=== PATIENT | female | born 1960 | race Caucasian/White ===

== ENCOUNTER → 2016-11-10 | Outpatient (REF) | payer BC ==
[2016-11-10 12:06] LABS: ALBUMIN 3.9 GM/DL (3.2-5.2); ALKALINE PHOSPHATASE 41 U/L (45-117); ALT/SGPT 27 U/L (12-78); ANION GAP 7 MEQ/L (8-16); AST/SGOT 18 U/L (15-37); BILIRUBIN,TOTAL 0.5 MG/DL (0.2-1.0); BLOOD UREA NITROGEN 25 MG/DL (7-18); CALCIUM LEVEL 8.9 MG/DL (8.5-10.1); CARBON DIOXIDE LEVEL 28 MEQ/L (21-32); CHLORIDE LEVEL 102 MEQ/L (98-107); CREATININE FOR GFR 0.68 MG/DL (0.55-1.02); GLOMERULAR FILTRATION RATE > 60.0 (>51); GLUCOSE, FASTING 83 MG/DL (70-105); POTASSIUM SERUM 3.9 MEQ/L (3.5-5.1); SODIUM LEVEL 137 MEQ/L (136-145); TOTAL PROTEIN 6.5 GM/DL (6.4-8.2)
[2016-11-10 12:13] LABS: VITAMIN B12 LEVEL 485 PG/ML
[2016-11-10 12:14] LABS: FOLATE 9.1 NG/ML
== END ==
LOC: M SFHCPLAZ 09:13
PROVIDERS: ATTEND Internal Medicine
DX: E87.6 Hypokalemia (principal); E78.00 Pure hypercholesterolemia, unspecified; E55.9 Vitamin D deficiency, unspecified; R53.83 Other fatigue

== ENCOUNTER → 2016-11-14 | Outpatient (CLI) | payer BC | LOC: M LAB 06:08 | PROVIDERS: ATTEND Internal Medicine | DX: E87.6 Hypokalemia (principal); E55.9 Vitamin D deficiency, unspecified; E78.00 Pure hypercholesterolemia, unspecified ==

== ENCOUNTER 2016-12-15 19:28 | Emergency (ER) | payer BC ==
[~2016-12-15] VITALS: Ht 167.6 cm; Wt 59.0 kg
--- NOTE | 2016-12-15 20:11 | ED PDOC ---
Post-Departure Follow-Up Patient presents to the ED with the solitary complaint of abdominal bloating for "a few months". Today, she noted that there was a "lump" in left lower abd. She denies any other complaints. See her T-sheet for the remainder of her H&P and ROS. Discussed options with patient. Offered an US to evaluate her ovaries as symptoms of ovarian cancer are usually very vague and generally include abdominal bloating. Also offered a CT abd/pelvis to evaluate but patient states she has had a clean colonoscopy within the past 6 months. She opted to have an US. No other testing was ordered at this time as she otherwise feels healthy. ADA NICHOLSON. [facility] Dec 15, 2016 20:11
--- NOTE | 2016-12-15 22:10 | REPUSA ---
Clinical history: abdominal bloating. Findings: Real-time transabdominal and transvaginal ultrasound images of the pelvis were obtained. An anteverted uterus is noted, measuring 7.0 x 3.7 x 4.7 cm. The uterus demonstrates normal echotextur e and echogenicity. The endometrial stripe measures 2 mm and is within normal limits. The right ovar y measures 3.3 x 1.1 x 1.5 cm. The left ovary measures 1.3 x 0.9 x 1.1 cm. No adnexal masses are see n. Color Doppler flow is seen within both ovaries. There is no evidence of free fluid. The urinary bl adder measures 4.4 x 2.1 x 5.7 cm, and is grossly unremarkable. Impression: Unremarkable ultrasound examination of the pelvis.
[2016-12-15 22:40] VITALS: BP 131/62
== END 2016-12-15 22:41 | disposition home or self-care (01) ==
LOC: M ED 19:55
DX: R14.0 Abdominal distension (gaseous) (principal); Z87.891 Personal history of nicotine dependence; Z88.5 Allergy status to narcotic agent; Z88.8 Allergy status to other drugs, medicaments and biological substances; Z88.3 Allergy status to other anti-infective agents

== ENCOUNTER → 2017-06-19 | Outpatient (CLI) | payer BC ==
[2017-06-19 11:11] LABS: MEAN CORPUSCULAR HEMOGLOBIN 29.9 pg (27.0-33.0); MEAN CORPUSCULAR HGB CONC 33.4 g/dl (32.0-36.5); MEAN CORPUSCULAR VOLUME 89.4 fl (80.0-96.0); PLATELET COUNT, AUTOMATED 227 10^3/uL (150-450); RED CELL DISTRIBUTION WIDTH 11.9 % (11.5-14.5); WHITE BLOOD COUNT 4.1 10^3/uL (4.0-10.0)
[2017-06-19 11:45] LABS: ALBUMIN 3.8 GM/DL (3.2-5.2); ALBUMIN/GLOBULIN RATIO 1.15 (1.00-1.93); BILIRUBIN,DIRECT 0.1 MG/DL (0.0-0.2); BILIRUBIN,TOTAL 0.5 MG/DL (0.2-1.0); TOTAL PROTEIN 7.1 GM/DL (6.4-8.2)
== END ==
LOC: M LAB 10:28
PROVIDERS: ATTEND Physician Assistant Medical
DX: D18.09 Hemangioma of other sites (principal)

== ENCOUNTER → 2018-11-18 | Outpatient (REF) | payer BC ==
[2018-11-18 10:06] LABS: HEMATOCRIT 40.4 % (36.0-47.0); HEMOGLOBIN 13.3 g/dl (12.0-15.5); MEAN CORPUSCULAR HGB CONC 32.9 g/dl (32.0-36.5); PLATELET COUNT, AUTOMATED 170 10^3/uL (150-450); RED BLOOD COUNT 4.44 10^6/uL (4.00-5.40); WHITE BLOOD COUNT 4.3 10^3/uL (4.0-10.0)
[2018-11-18 10:11] LABS: ALBUMIN 3.9 GM/DL (3.2-5.2); ALT/SGPT 24 U/L (12-78); BILIRUBIN,TOTAL 0.4 MG/DL (0.2-1.0); BLOOD UREA NITROGEN 13 MG/DL (7-18); CALCIUM LEVEL 8.8 MG/DL (8.5-10.1); CARBON DIOXIDE LEVEL 32 MEQ/L (21-32); CHLORIDE LEVEL 110 MEQ/L (98-107); CHOLESTEROL LEVEL 245 MG/DL (<200); CHOLESTEROL RISK RATIO 3.888 (<5); GLOMERULAR FILTRATION RATE > 60.0 (>51); GLUCOSE, FASTING 85 MG/DL (70-100); HDL CHOLESTEROL 63 MG/DL (>40); LDL CHOLESTEROL 164 MG/DL (<100); NON-HDL-C 182 MG/DL; POTASSIUM SERUM 4.3 MEQ/L (3.5-5.1); SODIUM LEVEL 144 MEQ/L (136-145); TOTAL PROTEIN 6.5 GM/DL (6.4-8.2); TRIGLYCERIDES LEVEL 90 MG/DL (<150)
== END ==
LOC: M SFHCPLAZ 07:51
PROVIDERS: ATTEND Internal Medicine
DX: Z00.00 Encounter for general adult medical examination without abnormal findings (principal); Z86.2 Personal history of diseases of the blood and blood-forming organs and certain disorders involving the immune mechanism; E87.6 Hypokalemia; E78.00 Pure hypercholesterolemia, unspecified

== ENCOUNTER → 2019-02-11 | Outpatient (CLI) | payer BC ==
--- NOTE | 2019-02-13 14:02 | DEXA ---
AP SPINE L1 - L4 1.157 -0.3 0.8 LT FEMUR TOTAL 0.892 -0.9 -0.1 LT NECK 0.777 -1.9 -0.7 RT FEMUR TOTAL 0.864 -1.1 -0.3 RT NECK 0.794 -1.8 -0.6 TOTAL BODY TOTAL OTHER COMMENTS: Normal bone densitometry of the spine. There is low bone density of the hips. The decreased density of the spine does represent a significant change. The decreased density of the left hip does represent a significant change. The decreased density of the right hip does represent a significant change. The density of the spine has decreased 1.9% since the initial exam on 12/12/2013. The spine density has decreased 3.4% since the most recent exam on 01/26/2016. The density of the left hip has decreased 4.6% since the initial exam on 12/12/2013. The density of the left hip has decreased 2.5% since the most recent exam on 01/26/2016. The density of the right hip has decreased 6.8% since the initial exam on 12/12/2013. The density of the right hip has decreased 2.4% since the most recent exam on 01/26/2016. FOLLOW-UP: Recommendation for the next bone density exam: 2 years. DONIS
== END ==
LOC: M WHC 06:52
PROVIDERS: ATTEND Obstetrics & Gynecology
DX: Z13.820 Encounter for screening for osteoporosis (principal)

== ENCOUNTER → 2020-11-15 | Outpatient (REF) | payer BC ==
[2020-11-15 10:29] LABS: HEMATOCRIT 41.2 % (36.0-47.0); HEMOGLOBIN 13.7 g/dl (12.0-15.5); MEAN CORPUSCULAR HEMOGLOBIN 30.8 pg (27.0-33.0); MEAN CORPUSCULAR HGB CONC 33.3 g/dl (32.0-36.5); MEAN CORPUSCULAR VOLUME 92.6 fl (80.0-96.0); PLATELET COUNT, AUTOMATED 168 10^3/uL (150-450); RED BLOOD COUNT 4.45 10^6/uL (4.00-5.40); WHITE BLOOD COUNT 4.8 10^3/uL (4.0-10.0)
[2020-11-15 10:58] LABS: ALT/SGPT 18 U/L (12-78); BILIRUBIN,TOTAL 0.4 MG/DL (0.2-1.0); BLOOD UREA NITROGEN 19 MG/DL (7-18); CALCIUM LEVEL 9.2 MG/DL (8.8-10.2); CARBON DIOXIDE LEVEL 31 MEQ/L (21-32); CHLORIDE LEVEL 108 MEQ/L (98-107); CHOLESTEROL LEVEL 198 MG/DL (<200); CHOLESTEROL RISK RATIO 3.193 (<5); CREATININE FOR GFR 0.62 MG/DL (0.55-1.30); GLOMERULAR FILTRATION RATE > 60.0 (>45); GLUCOSE, FASTING 84 MG/DL (70-100); HDL CHOLESTEROL 62 MG/DL (>40); LDL CHOLESTEROL 122 MG/DL (<100); NON-HDL-C 136 MG/DL; POTASSIUM SERUM 4.4 MEQ/L (3.5-5.1); SODIUM LEVEL 141 MEQ/L (136-145); TOTAL PROTEIN 6.7 GM/DL (6.4-8.2); TRIGLYCERIDES LEVEL 72 MG/DL (<150)
[2020-11-15 11:11] LABS: VITAMIN B12 LEVEL 507 PG/ML
[2020-11-15 12:06] LABS: FOLATE 19.1 NG/ML
== END ==
LOC: M PLALAB 08:08
PROVIDERS: ATTEND Internal Medicine
DX: Z00.00 Encounter for general adult medical examination without abnormal findings (principal); D18.03 Hemangioma of intra-abdominal structures; Z80.0 Family history of malignant neoplasm of digestive organs; E78.00 Pure hypercholesterolemia, unspecified; E55.9 Vitamin D deficiency, unspecified; R53.82 Chronic fatigue, unspecified

== ENCOUNTER 2020-12-05 01:58 | Observation (INO) | payer BC ==
[~2020-12-05] VITALS: Ht 167.6 cm; Wt 63.7 kg
[2020-12-05 03:04] LABS: BASO % 0.3 % (0.0-1.0); EOS % 0.2 % (0.0-3.0); HEMATOCRIT 39.7 % (36.0-47.0); HEMOGLOBIN 13.4 g/dl (12.0-15.5); LYMPH # 1.2 10^3/uL (1.5-5.0); LYMPH % 12.9 % (24.0-44.0); MEAN CORPUSCULAR HEMOGLOBIN 30.8 pg (27.0-33.0); MEAN CORPUSCULAR HGB CONC 33.8 g/dl (32.0-36.5); MEAN CORPUSCULAR VOLUME 91.3 fl (80.0-96.0); MONO # 0.8 10^3/uL (0.0-0.8); MONO % 8.5 % (2.0-8.0); NEUTROPHILS # 6.9 10^3/uL (1.5-8.5); NEUTROPHILS % 77.8 % (36.0-66.0); PLATELET COUNT, AUTOMATED 195 10^3/uL (150-450); RED BLOOD COUNT 4.35 10^6/uL (4.00-5.40); WHITE BLOOD COUNT 8.9 10^3/uL (4.0-10.0)
[2020-12-05] MEDS ORDERED: KETOROLAC 60MG 2ML VIAL IM ONE (03:05)
[2020-12-05] MEDS ORDERED: LIDOCAINE VISCOUS 2% SOLN 15ML UDC SS ONE (03:05)
[2020-12-05] MEDS ORDERED: KETOROLAC 30 MG/ML 1ML VIAL IV ONE (03:10)
[2020-12-05 03:22] LABS: BLOOD UREA NITROGEN 16 MG/DL (7-18); CALCIUM LEVEL 8.8 MG/DL (8.8-10.2); CARBON DIOXIDE LEVEL 28 MEQ/L (21-32); CHLORIDE LEVEL 108 MEQ/L (98-107); CREATININE FOR GFR 0.58 MG/DL (0.55-1.30); GLOMERULAR FILTRATION RATE > 60.0 (>45); GLUCOSE, FASTING 99 MG/DL (70-100); POTASSIUM SERUM 3.9 MEQ/L (3.5-5.1); SODIUM LEVEL 141 MEQ/L (136-145)
[2020-12-05] MEDS ORDERED: ISOVUE-370 76% 100ML VIAL As Ordered ONE (03:27)
--- NOTE | 2020-12-05 04:20 | REPVR ---
PROCEDURE INFORMATION: Exam: CT Neck With Contrast Exam date and time: 12/05/2020 3:39 AM Age: 60 years old Clinical indication: Mass, lump, or swelling in neck; Additional info: Sore throat/l sided swelling TECHNIQUE: Imaging protocol: Computed tomography images of the neck with contrast. Radiation optimization: All CT scans at this facility use at least one of these dose optimization techniques: automated exposure control; mA and/or kV adjustment per patient size (includes targeted exams where dose is matched to clinical indication); or iterative reconstruction. Contrast material: ISOVUE 370; Contrast volume: 75 ml; Contrast route: INTRAVENOUS (IV); COMPARISON: No relevant prior studies available. FINDINGS: Limitations: Dental amalgam artifact obscures the oral cavity and oral pharynx. Paranasal sinuses: Left piriformis sinus effacement. Nasopharynx: Unremarkable. Dental: Left palatine tonsil is largely obscured by dental artifact and is enlarged. Oropharynx: Left oropharynx, base of tongue, and epiglottic edema and thickening. Left parapharyngeal fat stranding. Evidence for tonsillitis with questionable small 1 cm left peritonsillar abscess. Tonsillar calcifications. Hypopharynx: Unremarkable. Larynx: Left aspect of the vallecula is moderately effaced. Retropharyngeal space: Retropharyngeal edema and small effusion. Submandibular/Parotid glands: Mild stranding and edema within the left carotid and submandibular spaces. Thyroid: Normal. No enlarged or calcified nodules. Lymph nodes: Unremarkable. No lymphadenopathy. Trachea: Visualized trachea is unremarkable. Lungs: Unremarkable as visualized. Bones/joints: Unremarkable. No acute fracture. Soft tissues: Left deep neck spaces soft tissue edema. IMPRESSION: 1. Left oropharynx, base of tongue, and epiglottic edema and thickening. Left parapharyngeal fat stranding. Retropharyngeal edema and small effusion. 2. Left palatine tonsil is largely obscured by dental artifact and is enlarged. Evidence for tonsillitis with questionable small 1 cm left peritonsillar abscess. 3. Mild stranding and edema within the left carotid and submandibular spaces. Left piriformis sinus effacement. Left aspect of the vallecula is moderately effaced. Electronically signed by: Roland Mendez On 12/05/2020 04:20:36 AM
[2020-12-05] MEDS ORDERED: dexameTHASONE 20MG/5ML VIAL (J1100 PER 1MG) IV ONE ×2 (04:50→04:55)
[2020-12-05] MEDS ORDERED: AMPICILLIN SOD/SULBACTAM SOD 3 GM in D5W MINI-BAG PLUS 100 ML IV ONE (04:55)
[2020-12-05] MEDS ORDERED: CLINDAMYCIN 300 MG in IV 1 EA IV SCH (05:35)
--- NOTE | 2020-12-05 05:47 | HPEPDOC ---
[facility] Medical History & Physical Date of Admission December 05, 2020 Date of Service: December 05, 2020 Attending Physician: WILIAM EASON MD History and Physical CHIEF COMPLAINT: [60 y/o female c/o painful swallowing x1 day] HISTORY OF PRESENT ILLNESS: [This is a 60 y/o female with no significant pmh who presents to the ED with a cc of sore throat/dysphagia x1 day. Patient states that her symptoms came on suddenly and have made it hard for her to eat or drink. Patient states she has had poor oral intake the past day. Patient states that she feels like she frequently needs to spit so that she does not need to swallow her saliva. Patient states that she has never experienced anything like this before. Patient admits to some associated malaise. Patient denies fever, chills, dyspnea, choking sensation, headache, n/v/d/c, abd pain. ] PAST MEDICAL HISTORY: 1. [GERD PAST SURGICAL HISTORY: 1. [Right ACL repair]. 2. [Tubal ligation]. SOCIAL HISTORY: Tobacco use:[Denies] ETOH: [Denies] Illicit drug use: [Denies] FAMILY HISTORY: Father: [Colon Ca] ALLERGIES: Please see below. REVIEW OF SYSTEMS: CONSTITUTIONAL: [See HPI]. HEENT: [See HPI]. CARDIOVASCULAR: [Denies chest pain, palpitations]. RESPIRATORY: [Denies cough, wheezing, dyspnea]. GASTROINTESTINAL: [See HPI]. GENITOURINARY: [Denies dysuria]. SKIN: [Denies rash]. MUSCULOSKELETAL: [Denies acute joint/back pain]. NEUROLOGICAL: [Denies paresthesia]. ENDOCRINE: [Denies hx of DM]. HEMATOLOGIC/LYMPHATIC: [Denies easy bruising]. HOME MEDICATIONS: Please see below. PHYSICAL EXAMINATION: VITAL SIGNS: Please see below. GENERAL APPEARANCE: [This is a 60 y/o female resting in bed in no apparent respiratory distress.]. HEENT: [No mass or lesion. EOMI. No scleral icterus. Nares patent. Oral mucosa moist. There is swelling of the left tonsil with erythema of pharynx. No exudates noted. Uvula midline. Tongue midline.]. CARDIOVASCULAR: Regular rate, rhyhtm. No murmurs, rubs, gallops]. LUNGS: [Good air flow b/l. No wheezing, rales, rhonchi.]. ABDOMEN: [Soft, nontender]. MUSCULOSKELETAL: [No joint deformity]. EXTREMITIES: [No peripheral edema. No overlying skin changes. Pulses itnact.]. NEUROLOGICAL: [Speech clear. A+Ox3. No focal deficits.]. PSYCHIATRIC: [Mood and affect appear appropriate.]. LABORATORY DATA: See below. IMAGING: [Neck CT: FINDINGS: Limitations: Dental amalgam artifact obscures the oral cavity and oral pharynx. Paranasal sinuses: Left piriformis sinus effacement. Nasopharynx: Unremarkable. Dental: Left palatine tonsil is largely obscured by dental artifact and is enlarged. Oropharynx: Left oropharynx, base of tongue, and epiglottic edema and thickening. Left parapharyngeal fat stranding. Evidence for tonsillitis with questionable small 1 cm left peritonsillar abscess. Tonsillar calcifications. Hypopharynx: Unremarkable. Larynx: Left aspect of the vallecula is moderately effaced. Retropharyngeal space: Retropharyngeal edema and small effusion. Submandibular/Parotid glands: Mild stranding and edema within the left carotid and submandibular spaces. Thyroid: Normal. No enlarged or calcified nodules. Lymph nodes: Unremarkable. No lymphadenopathy. Trachea: Visualized trachea is unremarkable. Lungs: Unremarkable as visualized. Bones/joints: Unremarkable. No acute fracture. Soft tissues: Left deep neck spaces soft tissue edema. IMPRESSION: 1. Left oropharynx, base of tongue, and epiglottic edema and thickening. Left parapharyngeal fat stranding. Retropharyngeal edema and small effusion. 2. Left palatine tonsil is largely obscured by dental artifact and is enlarged. Evidence for tonsillitis with questionable small 1 cm left peritonsillar abscess. 3. Mild stranding and edema within the left carotid and submandibular spaces. Left piriformis sinus effacement. Left aspect of the vallecula is moderately effaced. ] MICROBIOLOGY: Please see below. ASSESSMENT: [This is a 60 y/o female with no significant pmh who presents to the ED with a cc of sore throat/dysphagia x1 day. Patient states that her symptoms came on suddenly and have made it hard for her to eat or drink. Patient found to have small 1cm peritonsillar abscess on the left side. Patient's labwork is unremarkable.]. . PLAN: 1. [Peritonsillar abscess - No sirs criteria. No airway compromise. - Negative rapid strep in the ED. - Patient given dose of toradol, unasyn and decadron in the ED - Will begin iv clindamycin on the floor - oral tylenol syspension for pain - full liquid diet for now, advance as tolerated - maintenance fluids for now d/t recent poor oral intake - Day team can consider ENT consult for drainage if symptoms do not improve - Admit to med surg under obs for tx DVT prophylaxis - Teds and SCDs]. Vital Signs Vital Signs Date Time Temp Pulse Resp B/P (MAP) Pulse Ox O2 Delivery O2 Flow Rate FiO2 12/05/20 04:30 98.9 78 17 130/57 (81) 98 Room Air Laboratory Data Labs 24H Laboratory Tests 2 12/05/20 02:29: POC Group A Strep Rapid Screen NEGATIVE 12/05/20 02:43: Immature Granulocyte % (Auto) 0.3, Neutrophils (%) (Auto) 77.8H, Lymphocytes (%) (Auto) 12.9L, Monocytes (%) (Auto) 8.5H, Eosinophils (%) (Auto) 0.2, Basophils (%) (Auto) 0.3, Neutrophils # (Auto) 6.9, Lymphocytes # (Auto) 1.2L, Monocytes # (Auto) 0.8, Eosinophils # (Auto) 0.0, Basophils # (Auto) 0.0, Nucleated Red Blood Cells % (auto) 0.0, Anion Gap 5L, Glomerular Filtration Rate > 60.0, Calcium Level 8.8 12/05/20 05:13: CBC/BMP Laboratory Tests 12/05/20 02:43 Microbiology Microbiology 12/05/20 Group A Streptococcus Screen (NEVAEH), Received Pending 12/05/20 Group A Streptococcus Screen (NEVAEH), Received Pending Home Medications No Active Prescriptions or Reported Meds Allergies Coded Allergies: fluconazole (Verified Allergy, Unknown, 12/05/20) prednisolone (Verified Allergy, Unknown, 12/05/20) codeine (Verified Adverse Reaction, Mild, SICK, 12/05/20) hydrocodone (Verified Adverse Reaction, Mild, NV,DIARRHEA,GI UPSET, 12/05/20) A-FIB/CHADSVASC A-FIB History Current/History of A-Fib/PAF?: No MCKILLOP,SANTINO D PA December 05, 2020 05:47
[2020-12-05 06:12] LABS: RSV AMPLIFICATION NEGATIVE (NEGATIVE)
[2020-12-05] MEDS: CLINDAMYCIN 300 MG in IV 1 EA IV SCH ×3 (06:22→21:47)
[2020-12-05] MEDS: NS 1,000 ML IV SCH ×2 (06:22→17:50)
[2020-12-05 08:45] VITALS: BP 116/64
--- NOTE | 2020-12-05 11:31 | IPNPDOC ---
Text Note Date of Service The patient was seen on 12/05/20. NOTE Subjective: Patient is to have moderate pain with swallowing, denies any shor tness of breath or difficulties in breathing. Denies any fever or chills Objective: GENERAL APPEARANCE: NAD HEENT: no scleral icterus, no JVD, EOMI, mild redness and swelling of left per itonsillar area CARDIOVASCULAR: S1S2 LUNGS: CTA ABDOMEN: soft & not tender w palpitation MUSCULOSKELETAL: no cyanosis, no swelling INTEGUMENT: no generalized pallor NEUROLOGICAL: cranial nerve function from 2-12 intact intact, follows commands, speech not dysarthric Assessment and plan Pt is 60 y/o female with no significant pmh who presents to the ED with a cc of sore throat/dysphagia x1 day. Patient states that her symptoms came on suddenly and have made it hard for her to eat or drink. Patient found to have small 1cm peritonsillar abscess on the left side Peritonsillar abscess Patient received toradol, unasyn and decadron c/w Clindamycin IV Negative rapid strep Continue pain management Appreciate/agree with ENT consult Kaylee ETIENNE, I+O Kaylee ETIENNE I+O Laboratory Tests 12/05/20 02:43 Vital Signs Date Time Temp Pulse Resp B/P (MAP) Pulse Ox O2 Delivery O2 Flow Rate FiO2 12/05/20 08:27 98.8 12/05/20 08:15 81 18 97 Room Air 12/05/20 08:00 123/62 (82) JACQUELYN BROWN DO December 05, 2020 11:31
[2020-12-05] MEDS: ACETAMINOPHEN 325 MG/10.15 ML UDC PO PRN ×2 (11:35→17:51)
[2020-12-05] MEDS ORDERED: ACETAMINOPHEN TAB 650MG DOSE (2X325MG) PO PRN (11:35)
[2020-12-05 14:00] VITALS: BP 116/63
[2020-12-05] MEDS ORDERED: traMADol 50 MG TAB PO PRN (18:40)
[2020-12-05] MEDS ORDERED: KETOROLAC TROMETHAMINE 10 MG TAB PO PRN (18:40)
[2020-12-05] MEDS ORDERED: KETOROLAC 30 MG/ML 1ML VIAL IV PRN (21:40)
[2020-12-05] MEDS: dexameTHASONE 4 MG/ML 1ML VIAL (J1100 PER 1MG) IV SCH (21:47)
[2020-12-05 22:00] VITALS: BP 102/51
[2020-12-06] MEDS: NS 1,000 ML IV SCH (03:35)
[2020-12-06] MEDS: CLINDAMYCIN 300 MG in IV 1 EA IV SCH ×2 (05:05→12:55)
[2020-12-06] MEDS: dexameTHASONE 4 MG/ML 1ML VIAL (J1100 PER 1MG) IV SCH ×2 (05:05→12:55)
[2020-12-06 06:00] VITALS: BP 106/56
[2020-12-06 06:22] LABS: HEMATOCRIT 36.8 % (36.0-47.0); HEMOGLOBIN 12.1 g/dl (12.0-15.5); MEAN CORPUSCULAR HEMOGLOBIN 30.6 pg (27.0-33.0); MEAN CORPUSCULAR HGB CONC 32.9 g/dl (32.0-36.5); MEAN CORPUSCULAR VOLUME 92.9 fl (80.0-96.0); PLATELET COUNT, AUTOMATED 180 10^3/uL (150-450); RED BLOOD COUNT 3.96 10^6/uL (4.00-5.40); WHITE BLOOD COUNT 8.8 10^3/uL (4.0-10.0)
[2020-12-06 06:50] LABS: BLOOD UREA NITROGEN 13 MG/DL (7-18); CALCIUM LEVEL 8.4 MG/DL (8.8-10.2); CARBON DIOXIDE LEVEL 25 MEQ/L (21-32); CHLORIDE LEVEL 113 MEQ/L (98-107); CREATININE FOR GFR 0.45 MG/DL (0.55-1.30); GLOMERULAR FILTRATION RATE > 60.0 (>45); GLUCOSE, FASTING 136 MG/DL (70-100); POTASSIUM SERUM 4.3 MEQ/L (3.5-5.1); SODIUM LEVEL 143 MEQ/L (136-145)
[2020-12-06] MEDS ORDERED: CLIN150C15 PO (11:28)
[2020-12-06] MEDS ORDERED: ACE65ERTAB PO (11:28)
--- NOTE | 2020-12-06 12:05 | DS.PDOC ---
Discharge Summary General Date of Admission December 05, 2020 at 01:59 Date of Discharge 12/06/20 Discharge Summary PROCEDURES PERFORMED DURING STAY: [None]. ADMITTING DIAGNOSES: Peritonsillar abscess DISCHARGE DIAGNOSES: Peritonsillar abscess COMPLICATIONS/CHIEF COMPLAINT: Peritonsillar Abscess. HISTORY OF PRESENT ILLNESS: Pt is 60 y/o female with no significant pmh who presents to the ED with a cc of sore throat/dysphagia x1 day. Patient states that her symptoms came on suddenly and have made it hard for her to eat or drink. Patient found to have small 1cm peritonsillar abscess on the left side HOSPITAL COURSE: Hospital stay patient received treatment with IV clindamycin positive dynamics. Patient was consulted by ENT Dr Campuzano, he recommended IV clindamycin for 48 hours. No indication for surgical intervention DISCHARGE MEDICATIONS: Please see below. ALLERGIES: Please see below. PHYSICAL EXAMINATION ON DISCHARGE: VITAL SIGNS: Please see below. GENERAL APPEARANCE: NAD HEENT: no scleral icterus, no JVD, EOMI, mild redness and no swelling of left peritonsillar area CARDIOVASCULAR: S1S2 LUNGS: CTA ABDOMEN: soft & not tender w palpitation MUSCULOSKELETAL: no cyanosis, no swelling INTEGUMENT: no generalized pallor NEUROLOGICAL: cranial nerve function from 2-12 intact intact, follows commands, speech not dysarthric LABORATORY DATA: Please see below. IMAGING: [facility] NAME: OG SILVESTRE DATE OF : 1960 BUSINESS NUMBER: [id number] AGE: 60 SEX: F REPORT #: [id number] ROOM: ED TECHNOLOGIST: SONIDO DOCTOR: Gillian Morales DO Ordered for Date&Time: 12/05/20 030 cc: [~ rep ct ivnm] Service Date&Time: 12/05/20 033 This report is in Signed status. Interpretation performed by [facility]. Thank you for having your radiology procedures performed at [facility] RADIOLOGY REPORT Date&Time printed: [~ rep prt dt last] [~ rep prt tm last] Page 2 of [address] [address] RADIOLOGY REPORT This report is in Signed status. Interpretation performed by [facility]. Thank you for having your radiology procedures performed at [facility] RADIOLOGY REPORT Date&Time printed: [~ rep prt dt last] [~ rep prt tm last] Page 1 of 2 NAME: OG SILVESTRE DATE OF : 1960 BUSINESS NUMBER: [id number] AGE: 60 SEX: F REPORT #: [id number] ROOM: ED TECHNOLOGIST: SONIDO DOCTOR: Gillian Morales DO Ordered for Date&Time: 12/05/20 030 cc: [~ rep ct ivnm] Service Date&Time: 12/05/20338 EXAMINATION REQUESTED: CT Neck with contrast REASON FOR PATIENT VISIT: Throat pain REASON FOR EXAMINATION: sore throat/l sided swelling PROCEDURE INFORMATION: Exam: CT Neck With Contrast Exam date and time: 12/05/2020 3:39 AM Age: 60 years old Clinical indication: Mass, lump, or swelling in neck; Additional info: Sore throat/l sided swelling TECHNIQUE: Imaging protocol: Computed tomography images of the neck with contrast. Radiation optimization: All CT scans at this facility use at least one of these dose optimization techniques: automated exposure control; mA and/or kV adjustment per patient size (includes targeted exams where dose is matched to clinical indication); or iterative reconstruction. Contrast material: ISOVUE 370; Contrast volume: 75 ml; Contrast route: INTRAVENOUS (IV); COMPARISON: No relevant prior studies available. FINDINGS: Limitations: Dental amalgam artifact obscures the oral cavity and oral pharynx. Paranasal sinuses: Left piriformis sinus effacement. Nasopharynx: Unremarkable. Dental: Left palatine tonsil is largely obscured by dental artifact and is enlarged. Oropharynx: Left oropharynx, base of tongue, and epiglottic edema and thickening. Left parapharyngeal fat stranding. Evidence for tonsillitis with questionable small 1 cm left peritonsillar abscess. Tonsillar calcifications. Hypopharynx: Unremarkable. Larynx: Left aspect of the vallecula is moderately effaced. Retropharyngeal space: Retropharyngeal edema and small effusion. Submandibular/Parotid glands: Mild stranding and edema within the left carotid and submandibular spaces. Thyroid: Normal. No enlarged or calcified nodules. Lymph nodes: Unremarkable. No lymphadenopathy. Trachea: Visualized trachea is unremarkable. Lungs: Unremarkable as visualized. Bones/joints: Unremarkable. No acute fracture. Soft tissues: Left deep neck spaces soft tissue edema. IMPRESSION: 1. Left oropharynx, base of tongue, and epiglottic edema and thickening. Left parapharyngeal fat stranding. Retropharyngeal edema and small effusion. 2. Left palatine tonsil is largely obscured by dental artifact and is enlarged. Evidence for tonsillitis with questionable small 1 cm left peritonsillar abscess. 3. Mild stranding and edema within the left carotid and submandibular spaces. Left piriformis sinus effacement. Left aspect of the vallecula is moderately effaced. Electronically signed by: Naren Eaton On 12/05/2020 04:20:36 AM DD: NAREN EATON MD 12/05/20 0339 DT: ASHER 12/05/20419 DS: NITA 12/05/20419 [~ rep ct labl] PROGNOSIS: Fair ACTIVITY: [As tolerated]. DIET: Regular DISPOSITION: Home ITEMS TO FOLLOWUP ON ON OUTPATIENT: Follow-up with PCP in 3-5 days DISCHARGE CONDITION: [Stable]. TIME SPENT ON DISCHARGE: 40 minutes. Vital Signs/I&Os Vital Signs Date Time Temp Pulse Resp B/P (MAP) Pulse Ox O2 Delivery O2 Flow Rate FiO2 12/06/20 06:00 97.2 61 18 106/56 (73) 97 Room Air I&O- Last 24 Hours up to 6 AM 12/06/20 06:00 Intake Total 3135 ml Output Total 1050 ml Balance 2085 ml Laboratory Data Labs 24H Laboratory Tests 2 12/06/20 06:09: Nucleated Red Blood Cells % (auto) 0.0, Anion Gap 5L, Glomerular Filtration Rate > 60.0, Calcium Level 8.4L CBC/BMP Laboratory Tests 12/06/20 06:09 Microbiology Microbiology 12/05/20 Group A Streptococcus Screen (NEVAEH), Received Pending Discharge Medications Scheduled Clindamycin Hcl (Clindamycin HCl) 150 Mg Capsule, 1 CAP PO QID Scheduled PRN Acetaminophen (Acetaminophen ER) 650 Mg Tablet.er, 1 TAB PO TID PRN for pain Allergies Coded Allergies: fluconazole (Verified Allergy, Unknown, 12/05/20) prednisolone (Verified Allergy, Unknown, 12/05/20) codeine (Verified Adverse Reaction, Mild, SICK, 12/05/20) hydrocodone (Verified Adverse Reaction, Mild, NV,DIARRHEA,GI UPSET, 12/05/20) JACQUELYN BROWN DO December 06, 2020 12:05
--- NOTE | 2020-12-07 13:20 | CR ---
CONSULTATION DATE: 12/05/2020 CHIEF COMPLAINT: Throat pain on the left side of the upper neck. HISTORY OF PRESENT ILLNESS: This 60-year-old woman presented to the [facility] emergency department on the prior evening complaining of sudden onset of left-sided sore throat. She denies shortness of breath, drooling, fevers or chills. She has no prior history of similar incident in her lifetime. She denies exposure to sick contacts. She is a nonsmoker. CT scan of the neck revealed swelling of the left peritonsillar area consistent with peritonsillar cellulitis with a possible 1 cm left peritonsillar abscess or phlegmon. As such, I have been consulted to assess for possible need for surgical intervention. The patient has been admitted to the hospital for IV clindamycin in which she is responding. She also did receive a dose of Decadron in the emergency department which has helped with her sore throat as well. PAST MEDICAL HISTORY AND PAST SURGICAL HISTORY: Reviewed. Of significant is no prior history of peritonsillar abscess. MEDICATION LIST: Reviewed. ALLERGIES: Reviewed. REVIEW OF SYSTEMS: As listed under HPI, otherwise noncontributory. PHYSICAL EXAMINATION: On examination, the patient appears to be in no acute distress. She exhibits no evidence of stridor or drooling. She has no trismus. Oral cavity moist. Floor of mouth nonelevated. Soft palate with uvula in the midline and mildly erythematous on the left side. Left tonsil looks mildly erythematous with swelling. Minimal exudates. Some left jugular digastric lymph nodes. Trachea midline. No nuchal rigidity. CT, neck images were totally reviewed. Swelling over the left peritonsillar area with some extension to the supraglottis and left base of tongue. IMPRESSION: A 60-year-old woman with left peritonsillar cellulitis. PLAN: I am in agreement with the medical management including IV clindamycin. An addition of Decadron would expedite in resolution of the sore throat symptoms. The patient is in no acute airway distress. There is no indication for incision and drainage. She is to receive at least 24-48 hours worth of IV antibiotic. Upon discharge from hospital, she may follow up with the ENT office in about 7-10 days. I have spoken to the hospitalist in regards to the management plan.
== END 2020-12-06 13:51 | disposition home or self-care (01) ==
LOC: M ED 01:58 → M ED INP 01:59 → ENRESERV 07:35 → M MSPAV 08:45
PROVIDERS: ADMIT Family Medicine; ATTEND Internal Medicine
DX: J36 Peritonsillar abscess (principal); R13.10 Dysphagia, unspecified; K21.9 Gastro-esophageal reflux disease without esophagitis; Z79.2 Long term (current) use of antibiotics; Z88.5 Allergy status to narcotic agent; Z88.3 Allergy status to other anti-infective agents; Z88.8 Allergy status to other drugs, medicaments and biological substances
CPT/HCPCS: 36415; 70491; 80048; 85025; 85027; 87631; 87880; 96365; 96367; 96375; 96376; 99285; J1100; J1885; Q9967

== ENCOUNTER → 2021-07-04 | Outpatient (CLI) | payer BC ==
[~2021-07-04] MED LIST: ACE65ERTAB PO; CLIN150C17 PO
[2021-07-04 10:28] LABS: EOS # 0.1 10^3/uL (0.0-0.5); EOS % 2.1 % (0.0-3.0); HEMATOCRIT 42.3 % (36.0-47.0); HEMOGLOBIN 14.2 g/dl (12.0-15.5); LYMPH # 1.3 10^3/uL (1.5-5.0); LYMPH % 44.8 % (24.0-44.0); MEAN CORPUSCULAR HEMOGLOBIN 30.2 pg (27.0-33.0); MEAN CORPUSCULAR HGB CONC 33.6 g/dl (32.0-36.5); MONO # 0.3 10^3/uL (0.0-0.8); MONO % 11.8 % (2.0-8.0); NEUTROPHILS # 1.2 10^3/uL (1.5-8.5); NEUTROPHILS % 40.3 % (36.0-66.0); PLATELET COUNT, AUTOMATED 187 10^3/uL (150-450); WHITE BLOOD COUNT 2.9 10^3/uL (4.0-10.0)
[2021-07-04 10:59] LABS: ALBUMIN 4.1 GM/DL (3.2-5.2); ALT/SGPT 21 U/L (12-78); BILIRUBIN,TOTAL 0.4 MG/DL (0.2-1.0); BLOOD UREA NITROGEN 17 MG/DL (7-18); CALCIUM LEVEL 9.1 MG/DL (8.8-10.2); CARBON DIOXIDE LEVEL 30 MEQ/L (21-32); CHLORIDE LEVEL 107 MEQ/L (98-107); CHOLESTEROL LEVEL 207 MG/DL (<200); CREATININE FOR GFR 0.72 MG/DL (0.55-1.30); FREE T3 2.3 PG/ML (2.2-4.0); FREE T4 1.06 NG/DL (0.76-1.46); GLOMERULAR FILTRATION RATE > 60.0 (>45); GLUCOSE, FASTING 94 MG/DL (70-100); HDL CHOLESTEROL 50 MG/DL (>40); LDL CHOLESTEROL 140 MG/DL (<100); NON-HDL-C 157 MG/DL; POTASSIUM SERUM 4.1 MEQ/L (3.5-5.1); SODIUM LEVEL 141 MEQ/L (136-145); THYROID STIMULATING HORMONE 0.603 uIU/ML (0.358-3.740); TOTAL PROTEIN 7.1 GM/DL (6.4-8.2); TRIGLYCERIDES LEVEL 85 MG/DL (<150)
[2021-07-04 11:03] LABS: FOLATE 19.3 NG/ML; VITAMIN B12 LEVEL 631 PG/ML
[2021-07-08 14:09] LABS: ANA (HEP2) Positive (.); Lyme Disease IgG Ab 18 kDa Ban Absent (.); Lyme Disease IgG Ab 23 kDa Ban Absent (.); Lyme Disease IgG Ab 28 kDa Ban Absent (.); Lyme Disease IgG Ab 30 kDa Ban Absent (.); Lyme Disease IgG Ab 39 kDa Ban Absent (.); Lyme Disease IgG Ab 41 kDa Ban Absent (.); Lyme Disease IgG Ab 45 kDa Ban Absent (.); Lyme Disease IgG Ab 58 kDa Ban Absent (.); Lyme Disease IgG Ab 66 kDa Ban Absent (.); Lyme Disease IgG Ab 93 kDa Ban Absent (.); Lyme Disease IgG West Blot Int Negative (.); Lyme Disease IgG/IgM Antibodie <0.91 ISR (0.00-0.90); Lyme Disease IgM Ab 23 kDa Ban Absent (.); Lyme Disease IgM Ab 39 kDa Ban Absent (.); Lyme Disease IgM Ab 41 kDa Ban Absent (.); Lyme Disease IgM Ab Quantitati 2.07 index (0.00-0.79); Lyme Disease IgM West Blot Int Negative (.)
== END ==
LOC: M PLALAB 08:07
PROVIDERS: ATTEND Internal Medicine
DX: E87.6 Hypokalemia (principal)

== ENCOUNTER 2021-08-21 14:05 | Emergency (ER) | payer BC ==
[~2021-08-21] VITALS: Ht 167.6 cm; Wt 57.2 kg
[2021-08-21 16:00] LABS: BASO % 1.3 % (0.0-1.0); EOS % 0.8 % (0.0-3.0); HEMATOCRIT 37.6 % (36.0-47.0); LYMPH % 40.9 % (24.0-44.0); MEAN CORPUSCULAR HEMOGLOBIN 30.4 pg (27.0-33.0); MEAN CORPUSCULAR HGB CONC 34.6 g/dl (32.0-36.5); MEAN CORPUSCULAR VOLUME 87.9 fl (80.0-96.0); MONO # 0.3 10^3/uL (0.0-0.8); MONO % 11.8 % (2.0-8.0); NEUTROPHILS # 1.1 10^3/uL (1.5-8.5); NEUTROPHILS % 45.2 % (36.0-66.0); PLATELET COUNT, AUTOMATED 151 10^3/uL (150-450); RED BLOOD COUNT 4.28 10^6/uL (4.00-5.40); WHITE BLOOD COUNT 2.4 10^3/uL (4.0-10.0)
[2021-08-21 16:20] LABS: BLOOD UREA NITROGEN 10 MG/DL (7-18); CALCIUM LEVEL 8.7 MG/DL (8.8-10.2); CARBON DIOXIDE LEVEL 32 MEQ/L (21-32); CHLORIDE LEVEL 106 MEQ/L (98-107); CREATININE FOR GFR 0.55 MG/DL (0.55-1.30); GLOMERULAR FILTRATION RATE > 60.0 (>45); GLUCOSE, FASTING 85 MG/DL (70-100); POTASSIUM SERUM 4.2 MEQ/L (3.5-5.1); SODIUM LEVEL 143 MEQ/L (136-145)
[2021-08-21 16:24] LABS: CK-MB VALUE MASS 1.7 NG/ML (<3.6); MB/CK RELATIVE INDEX 2.18 (< OR =4)
[2021-08-21] MEDS ORDERED: NS 1,000 ML IV ONE (17:50)
[2021-08-21 18:03] LABS: MAGNESIUM LEVEL 2.1 MG/DL (1.8-2.4)
[2021-08-21 19:29] LABS: RSV AMPLIFICATION NEGATIVE (NEGATIVE)
[2021-08-21 20:00] VITALS: BP 142/72
== END 2021-08-21 20:50 | disposition home or self-care (01) ==
LOC: M ED 14:05
DX: U07.1 COVID-19 (principal); R42 Dizziness and giddiness; Z88.6 Allergy status to analgesic agent; Z88.8 Allergy status to other drugs, medicaments and biological substances

== ENCOUNTER → 2021-09-16 | Outpatient (CLI) | payer BC | LOC: M SLEEP HO 10:17 | PROVIDERS: ATTEND Internal Medicine | DX: R53.82 Chronic fatigue, unspecified (principal) ==

== ENCOUNTER → 2021-09-29 | Outpatient (CLI) | payer BC | LOC: M LABSMTC 10:55 | PROVIDERS: ATTEND Anesthesiology | DX: Z01.818 Encounter for other preprocedural examination (principal); Z11.52 Encounter for screening for COVID-19 ==

== ENCOUNTER 2021-10-04 06:42 | Day surgery (SDC) | payer BC ==
[~2021-10-04] VITALS: Ht 167.6 cm; Wt 58.5 kg
[~2021-10-04 06:42] MED LIST changes: +NS 1,000 ML IV ONE
[2021-10-04] MEDS ORDERED: LIDOCAINE 2% 100MG/5ML SDV (FOR ANES.) As Ordered ONE (07:20)
[2021-10-04] MEDS ORDERED: propofoL 200 MG/20 ML VIAL As Ordered ONE (07:20)
[2021-10-04 08:26] VITALS: BP 117/54
== END 2021-10-04 08:39 | disposition home or self-care (01) ==
LOC: M OPP 06:42
PROVIDERS: ATTEND Internal Medicine Gastroenterology
DX: Z12.11 Encounter for screening for malignant neoplasm of colon (principal); Z80.0 Family history of malignant neoplasm of digestive organs; D12.2 Benign neoplasm of ascending colon; Q43.8 Other specified congenital malformations of intestine; K64.8 Other hemorrhoids; Z88.5 Allergy status to narcotic agent; Z88.8 Allergy status to other drugs, medicaments and biological substances; Z86.14 Personal history of Methicillin resistant Staphylococcus aureus infection

== ENCOUNTER → 2021-11-21 | Outpatient (CLI) | payer BC ==
[~2021-11-21] MED LIST changes: -NS 1,000 ML IV ONE
[2021-11-21 11:01] LABS: BASO % 0.8 % (0.0-1.0); EOS # 0.2 10^3/uL (0.0-0.5); EOS % 3.8 % (0.0-3.0); HEMATOCRIT 42.9 % (36.0-47.0); HEMOGLOBIN 14.3 g/dl (12.0-15.5); LYMPH # 1.3 10^3/uL (1.5-5.0); MEAN CORPUSCULAR HEMOGLOBIN 31.4 pg (27.0-33.0); MEAN CORPUSCULAR HGB CONC 33.3 g/dl (32.0-36.5); MEAN CORPUSCULAR VOLUME 94.3 fl (80.0-96.0); MONO # 0.4 10^3/uL (0.0-0.8); MONO % 8.8 % (2.0-8.0); NEUTROPHILS # 2.1 10^3/uL (1.5-8.5); NEUTROPHILS % 53.3 % (36.0-66.0); PLATELET COUNT, AUTOMATED 197 10^3/uL (150-450); RED BLOOD COUNT 4.55 10^6/uL (4.00-5.40)
[2021-11-21 11:43] LABS: ALBUMIN 4.1 GM/DL (3.2-5.2); ALT/SGPT 27 U/L (12-78); BILIRUBIN,TOTAL 0.4 MG/DL (0.2-1.0); BLOOD UREA NITROGEN 15 MG/DL (7-18); CARBON DIOXIDE LEVEL 29 MEQ/L (21-32); CHLORIDE LEVEL 107 MEQ/L (98-107); CHOLESTEROL LEVEL 260 MG/DL (<200); CHOLESTEROL RISK RATIO 3.661 (<5); CREATININE FOR GFR 0.83 MG/DL (0.55-1.30); GLOMERULAR FILTRATION RATE > 60.0 (>45); GLUCOSE, FASTING 98 MG/DL (70-100); HDL CHOLESTEROL 71 MG/DL (>40); LDL CHOLESTEROL 174 MG/DL (<100); NON-HDL-C 189 MG/DL; SODIUM LEVEL 140 MEQ/L (136-145); TRIGLYCERIDES LEVEL 77 MG/DL (<150)
[2021-11-21 12:13] LABS: HEPATITIS C VIRUS ABY INDEX 0.1 INDEX (<0.8)
== END ==
LOC: M PLALAB 07:40
PROVIDERS: ATTEND Internal Medicine
DX: R53.82 Chronic fatigue, unspecified (principal)

== ENCOUNTER 2021-12-29 09:52 | Emergency (ER) | payer BC ==
[~2021-12-29] VITALS: Ht 167.6 cm; Wt 59.9 kg
[2021-12-29 16:29] LABS: BASO # 0.1 10^3/uL (0.0-0.2); EOS # 0.1 10^3/uL (0.0-0.5); EOS % 1.9 % (0.0-3.0); HEMATOCRIT 39.3 % (36.0-47.0); HEMOGLOBIN 13.5 g/dl (12.0-15.5); LYMPH # 1.6 10^3/uL (1.5-5.0); LYMPH % 33.3 % (24.0-44.0); MEAN CORPUSCULAR HEMOGLOBIN 30.8 pg (27.0-33.0); MEAN CORPUSCULAR HGB CONC 34.4 g/dl (32.0-36.5); MEAN CORPUSCULAR VOLUME 89.7 fl (80.0-96.0); MONO # 0.5 10^3/uL (0.0-0.8); MONO % 9.8 % (2.0-8.0); NEUTROPHILS # 2.6 10^3/uL (1.5-8.5); NEUTROPHILS % 53.8 % (36.0-66.0); PLATELET COUNT, AUTOMATED 170 10^3/uL (150-450); RED BLOOD COUNT 4.38 10^6/uL (4.00-5.40); WHITE BLOOD COUNT 4.8 10^3/uL (4.0-10.0)
[2021-12-29 16:58] LABS: BLOOD UREA NITROGEN 20 MG/DL (7-18); CALCIUM LEVEL 8.8 MG/DL (8.8-10.2); CARBON DIOXIDE LEVEL 29 MEQ/L (21-32); CHLORIDE LEVEL 107 MEQ/L (98-107); CREATININE FOR GFR 0.75 MG/DL (0.55-1.30); GLOMERULAR FILTRATION RATE > 60.0 (>45); GLUCOSE, FASTING 80 MG/DL (70-100); NT-PRO BNP 176 PG/ML (<125); POTASSIUM SERUM 4.2 MEQ/L (3.5-5.1); SODIUM LEVEL 141 MEQ/L (136-145)
[2021-12-29 17:59] VITALS: BP 119/65
== END 2021-12-29 18:03 | disposition home or self-care (01) ==
LOC: M ED 09:52
DX: M54.89 Other dorsalgia (principal); Z88.5 Allergy status to narcotic agent; Z88.8 Allergy status to other drugs, medicaments and biological substances

== ENCOUNTER → 2022-01-17 | Outpatient (CLI) | payer BC ==
[2022-01-17 11:43] LABS: CHOLESTEROL RISK RATIO 3.5 (<5); THYROID STIMULATING HORMONE 1.05 uIU/ML (0.358-3.740)
== END ==
LOC: M PLALAB 07:27
PROVIDERS: ATTEND Internal Medicine
DX: E78.00 Pure hypercholesterolemia, unspecified (principal)

== ENCOUNTER 2022-04-29 19:13 | Emergency (ER) | payer BC ==
[~2022-04-29] VITALS: Ht 167.6 cm; Wt 61.4 kg
[2022-04-29 19:51] LABS: BASO # 0.1 10^3/uL (0.0-0.2); BASO % 0.9 % (0.0-1.0); EOS # 0.1 10^3/uL (0.0-0.5); EOS % 1.5 % (0.0-3.0); HEMATOCRIT 40.4 % (36.0-47.0); HEMOGLOBIN 13.5 g/dl (12.0-15.5); LYMPH # 2.3 10^3/uL (1.5-5.0); LYMPH % 41.6 % (24.0-44.0); MEAN CORPUSCULAR HEMOGLOBIN 30.3 pg (27.0-33.0); MEAN CORPUSCULAR HGB CONC 33.4 g/dl (32.0-36.5); MEAN CORPUSCULAR VOLUME 90.6 fl (80.0-96.0); MONO # 0.5 10^3/uL (0.0-0.8); MONO % 9.6 % (2.0-8.0); NEUTROPHILS # 2.5 10^3/uL (1.5-8.5); NEUTROPHILS % 46.2 % (36.0-66.0); PLATELET COUNT, AUTOMATED 213 10^3/uL (150-450); RED BLOOD COUNT 4.46 10^6/uL (4.00-5.40); WHITE BLOOD COUNT 5.4 10^3/uL (4.0-10.0)
[2022-04-29 20:24] LABS: ALBUMIN 4.1 GM/DL (3.2-5.2); ALT/SGPT 26 U/L (12-78); BILIRUBIN,DIRECT < 0.1 MG/DL (0.0-0.2); BILIRUBIN,TOTAL 0.4 MG/DL (0.2-1.0); BLOOD UREA NITROGEN 22 MG/DL (7-18); CALCIUM LEVEL 9.3 MG/DL (8.8-10.2); CARBON DIOXIDE LEVEL 32 MEQ/L (21-32); CHLORIDE LEVEL 103 MEQ/L (98-107); CREATININE FOR GFR 0.99 MG/DL (0.55-1.30); GLOMERULAR FILTRATION RATE > 60.0 (>45); GLUCOSE, FASTING 101 MG/DL (70-100); LIPASE 185 U/L (73-393); POTASSIUM SERUM 3.9 MEQ/L (3.5-5.1); SODIUM LEVEL 139 MEQ/L (136-145); TOTAL PROTEIN 7.5 GM/DL (6.4-8.2)
[2022-04-29 20:26] LABS: CK-MB VALUE MASS 1.1 NG/ML (<3.6); MB/CK RELATIVE INDEX 1.29 (< OR =4)
[2022-04-29] MEDS ORDERED: ISOVUE-370 76% 100ML VIAL As Ordered ONE (20:39)
[2022-04-29 21:18] LABS: CK-MB VALUE MASS 1.1 NG/ML (<3.6); MB/CK RELATIVE INDEX 0.8 (< OR =4)
[2022-04-29 23:15] VITALS: BP 161/69
[2022-04-29 23:26] LABS: CK-MB VALUE MASS < 1.0 NG/ML (<3.6); CPK CREATINE PHOSPHOKINASE 80 U/L (26-192); MB/CK RELATIVE INDEX 1.25 (< OR =4)
== END 2022-04-29 23:57 | disposition home or self-care (01) ==
LOC: M ED 19:13
DX: I31.9 Disease of pericardium, unspecified (principal); D17.1 Benign lipomatous neoplasm of skin and subcutaneous tissue of trunk; E78.5 Hyperlipidemia, unspecified; D50.9 Iron deficiency anemia, unspecified; Z87.891 Personal history of nicotine dependence; Z82.49 Family history of ischemic heart disease and other diseases of the circulatory system; Z88.5 Allergy status to narcotic agent; Z88.8 Allergy status to other drugs, medicaments and biological substances
CPT/HCPCS: 71046; 71275; 80048; 80076; 82550; 82553; 83690; 84484; 85025; 93005; 93041; 94760; 99285; Q9967

== ENCOUNTER 2022-07-20 20:14 | Emergency (ER) | payer BC ==
[~2022-07-20] VITALS: Ht 167.6 cm; Wt 59.6 kg
[2022-07-20 20:16] VITALS: BP 120/58
== END 2022-07-20 22:22 | disposition home or self-care (01) ==
LOC: M ED 21:20
DX: S61.401A Unspecified open wound of right hand, initial encounter (principal); W26.8XXA Contact with other sharp object(s), not elsewhere classified, initial encounter; Y92.099 Unspecified place in other non-institutional residence as the place of occurrence of the external cause; Z88.5 Allergy status to narcotic agent; Z88.8 Allergy status to other drugs, medicaments and biological substances

== ENCOUNTER → 2022-12-21 | Outpatient (CLI) | payer BC ==
[2022-12-21 11:23] LABS: BASO # 0.1 10^3/uL (0.0-0.2); BASO % 1.7 % (0.0-1.0); EOS # 0.1 10^3/uL (0.0-0.5); EOS % 1.9 % (0.0-3.0); HEMATOCRIT 41.5 % (36.0-47.0); LYMPH # 1.4 10^3/uL (1.5-5.0); LYMPH % 40.1 % (24.0-44.0); MEAN CORPUSCULAR HEMOGLOBIN 30.8 pg (27.0-33.0); MEAN CORPUSCULAR HGB CONC 33.7 g/dl (32.0-36.5); MEAN CORPUSCULAR VOLUME 91.4 fl (80.0-96.0); MONO # 0.3 10^3/uL (0.0-0.8); MONO % 9.5 % (2.0-8.0); NEUTROPHILS # 1.7 10^3/uL (1.5-8.5); NEUTROPHILS % 46.5 % (36.0-66.0); PLATELET COUNT, AUTOMATED 182 10^3/uL (150-450); RED BLOOD COUNT 4.54 10^6/uL (4.00-5.40); WHITE BLOOD COUNT 3.6 10^3/uL (4.0-10.0)
[2022-12-21 11:50] LABS: TOTAL 25(OH) VITAMIN D 48.8 NG/ML (20.0-100.0)
[2022-12-21 11:51] LABS: FREE T4 1.39 NG/DL (0.89-1.76)
[2022-12-21 11:52] LABS: THYROID STIMULATING HORMONE 1.551 uIU/ML (0.55-4.78)
[2022-12-21 11:53] LABS: ALBUMIN 4.2 G/DL (3.2-5.2); ALKALINE PHOSPHATASE 36 U/L (46-116); ALT/SGPT 21 U/L (7.0-40); AST/SGOT 13 U/L (<34); BILIRUBIN,TOTAL 0.6 MG/DL (0.3-1.2); BLOOD UREA NITROGEN 18 MG/DL (9-23); CARBON DIOXIDE LEVEL 31 MMOL/L (20-31); CHLORIDE LEVEL 104 MMOL/L (98-107); CHOLESTEROL LEVEL 252 MG/DL (<200); CREATININE FOR GFR 0.67 MG/DL (0.55-1.30); GLOMERULAR FILTRATION RATE > 60.0 (>45); GLUCOSE, FASTING 87 MG/DL (74-106); HDL CHOLESTEROL 57.2 MG/DL (>40); LDL CHOLESTEROL 175.6 MG/DL (<100); NON-HDL-C 194.8 MG/DL; POTASSIUM SERUM 4.2 MMOL/L (3.5-5.1); SODIUM LEVEL 139 MMOL/L (136-145); TOTAL PROTEIN 6.5 G/DL (5.7-8.2); TRIGLYCERIDES LEVEL 96 MG/DL (<150)
[2022-12-21 11:55] LABS: FERRITIN 51.6 NG/ML (7.3-270.7)
[2022-12-21 11:56] LABS: VITAMIN B12 LEVEL 372 PG/ML (211-911)
== END ==
LOC: M PLALAB 07:29
PROVIDERS: ATTEND Physician Assistant
DX: E87.6 Hypokalemia (principal)

== ENCOUNTER → 2023-06-27 | Outpatient (CLI) | payer BC ==
[2023-06-27 13:07] LABS: BASO # 0.1 10^3/uL (0.0-0.2); BASO % 1.3 % (0.0-1.0); EOS # 0.1 10^3/uL (0.0-0.5); EOS % 1.7 % (0.0-3.0); HEMOGLOBIN 14.3 g/dl (12.0-15.5); LYMPH # 1.6 10^3/uL (1.5-5.0); MEAN CORPUSCULAR HEMOGLOBIN 30.6 pg (27.0-33.0); MEAN CORPUSCULAR HGB CONC 33.3 g/dl (32.0-36.5); MEAN CORPUSCULAR VOLUME 92.1 fl (80.0-96.0); MONO # 0.4 10^3/uL (0.0-0.8); MONO % 8.2 % (2.0-8.0); NEUTROPHILS # 2.5 10^3/uL (1.5-8.5); NEUTROPHILS % 54.6 % (36.0-66.0); PLATELET COUNT, AUTOMATED 191 10^3/uL (150-450); RED BLOOD COUNT 4.67 10^6/uL (4.00-5.40); WHITE BLOOD COUNT 4.7 10^3/uL (4.0-10.0)
[2023-06-27 13:18] LABS: INR 1.11; PROTHROMBIN TIME 13.9 SECONDS (12.5-14.5)
[2023-06-27 13:19] LABS: PARTIAL THROMBOPLASTIN TIME 38.1 SECONDS (24.8-34.2)
[2023-06-27 13:40] LABS: IRON (FE) 131 UG/DL (50-170)
[2023-06-27 13:41] LABS: ALBUMIN 4.4 G/DL (3.2-5.2); ALKALINE PHOSPHATASE 43 U/L (46-116); ALT/SGPT 18 U/L (7.0-40); AST/SGOT 9 U/L (<34); BILIRUBIN,TOTAL 0.7 MG/DL (0.3-1.2); BLOOD UREA NITROGEN 19 MG/DL (9-23); CALCIUM LEVEL 9.5 MG/DL (8.3-10.6); CARBON DIOXIDE LEVEL 30 MMOL/L (20-31); CHLORIDE LEVEL 105 MMOL/L (98-107); CHOLESTEROL LEVEL 253 MG/DL (<200); CHOLESTEROL RISK RATIO 3.79 (<5); CREATININE FOR GFR 0.56 MG/DL (0.55-1.30); GLOMERULAR FILTRATION RATE > 60.0 (>45); GLUCOSE, FASTING 85 MG/DL (74-106); HDL CHOLESTEROL 66.6 MG/DL (>40); LDL CHOLESTEROL 169.6 MG/DL (<100); NON-HDL-C 186.4 MG/DL; PERCENT SATURATION 42.4 % (13.2-45.0); POTASSIUM SERUM 4.4 MMOL/L (3.5-5.1); SODIUM LEVEL 139 MMOL/L (136-145); TOTAL IRON BINDING CAPACITY 309 UG/DL (250-425); TRIGLYCERIDES LEVEL 84 MG/DL (<150)
[2023-06-27 13:44] LABS: THYROID STIMULATING HORMONE 0.987 uIU/ML (0.55-4.78)
[2023-06-27 13:45] LABS: FERRITIN 50.8 NG/ML (7.3-270.7); FREE T4 1.57 NG/DL (0.89-1.76); VITAMIN B12 LEVEL 576 PG/ML (211-911)
== END ==
LOC: M PLALAB 09:34
PROVIDERS: ATTEND Physician Assistant
DX: R04.0 Epistaxis (principal); R42 Dizziness and giddiness; R53.83 Other fatigue

== ENCOUNTER 2023-06-29 20:38 | Emergency (ER) | payer BC, SELFPAY ==
[~2023-06-29] VITALS: Ht 167.6 cm; Wt 58.6 kg
[2023-06-29] MEDS ORDERED: IBUPROFEN 600MG TAB PO ONE ×2 (22:00→23:45)
[2023-06-29 23:01] LABS: RSV AMPLIFICATION NEGATIVE (NEGATIVE)
[2023-06-29 23:15] VITALS: BP 133/64; TEMP 98.9; O2SAT 99
[2023-07-01] MEDS ORDERED: ADVI200T17 PO (07:13)
[2023-07-01] MEDS ORDERED: AMOX875T2 PO (11:05)
[2023-07-03] MEDS ORDERED: PENI500T PO (18:52)
[2023-07-03] MEDS ORDERED: AMOX875T2 PO (18:52)
[2023-07-04] MEDS ORDERED: AMOX875T2 PO ×2 (12:10→12:16)
[2023-07-04] MEDS ORDERED: MAGICMW SSP (14:43)
== END 2023-06-30 00:07 | disposition home or self-care (01) ==
LOC: M ED 20:38
DX: J02.9 Acute pharyngitis, unspecified (principal); Z88.5 Allergy status to narcotic agent; Z88.8 Allergy status to other drugs, medicaments and biological substances

== ENCOUNTER 2023-07-01 06:57 | Emergency (ER) | payer BC, SELFPAY ==
[2023-07-01] MEDS ORDERED: ADVI200T17 PO (07:13)
[2023-07-01] MEDS ORDERED: KETOROLAC 30 MG/ML 1ML VIAL IV ONE (09:10)
[2023-07-01 09:21] LABS: BASO # 0.1 10^3/uL (0.0-0.2); BASO % 0.8 % (0.0-1.0); EOS # 0.1 10^3/uL (0.0-0.5); EOS % 0.8 % (0.0-3.0); HEMATOCRIT 41.9 % (36.0-47.0); LYMPH # 0.9 10^3/uL (1.5-5.0); LYMPH % 12.6 % (24.0-44.0); MEAN CORPUSCULAR HEMOGLOBIN 30.4 pg (27.0-33.0); MEAN CORPUSCULAR HGB CONC 33.4 g/dl (32.0-36.5); MEAN CORPUSCULAR VOLUME 90.9 fl (80.0-96.0); MONO # 0.5 10^3/uL (0.0-0.8); MONO % 6.6 % (2.0-8.0); NEUTROPHILS # 5.7 10^3/uL (1.5-8.5); NEUTROPHILS % 78.9 % (36.0-66.0); PLATELET COUNT, AUTOMATED 189 10^3/uL (150-450); RED BLOOD COUNT 4.61 10^6/uL (4.00-5.40); WHITE BLOOD COUNT 7.2 10^3/uL (4.0-10.0)
[2023-07-01] MEDS ORDERED: ISOVUE-370 76% 100ML VIAL As Ordered ONE (09:27)
[2023-07-01 09:36] LABS: ERYTHROCYTE SEDIMENTATION RATE 34 mm/hr (0-30)
[2023-07-01] MEDS ORDERED: AUGMENTIN 875 MG TAB PO ONE (11:05)
[2023-07-01] MEDS ORDERED: AMOX875T2 PO (11:05)
[2023-07-01 11:11] VITALS: BP 110/58; TEMP 98.8; O2SAT 97
[2023-07-03] MEDS ORDERED: AMOX875T2 PO (18:52)
[2023-07-03] MEDS ORDERED: PENI500T PO (18:52)
[2023-07-04] MEDS ORDERED: AMOX875T2 PO ×2 (12:10→12:16)
[2023-07-04] MEDS ORDERED: MAGICMW SSP (14:43)
== END 2023-07-01 11:18 | disposition home or self-care (01) ==
LOC: M ED 06:57
DX: K08.89 Other specified disorders of teeth and supporting structures (principal); H20.9 Unspecified iridocyclitis; E78.5 Hyperlipidemia, unspecified; Z87.891 Personal history of nicotine dependence
CPT/HCPCS: 70487; 80047; 83605; 85025; 85652; 86140; 87040; 96374; 99284; J1885; Q9967

== ENCOUNTER → 2023-07-27 | Outpatient (CLI) | payer BC ==
[~2023-07-27] MED LIST changes: +ADVI200T17 PO; +AMOX875T2 PO; +MAGICMW SSP; +PENI500T PO
[2023-07-27 16:04] LABS: ALBUMIN 4.1 G/DL (3.2-5.2); BLOOD UREA NITROGEN 22 MG/DL (9-23); CALCIUM LEVEL 8.8 MG/DL (8.3-10.6); CARBON DIOXIDE LEVEL 28 MMOL/L (20-31); CHLORIDE LEVEL 105 MMOL/L (98-107); CREATININE FOR GFR 0.76 MG/DL (0.55-1.30); GLOMERULAR FILTRATION RATE > 60.0 (>45); GLUCOSE, FASTING 85 MG/DL (74-106); POTASSIUM SERUM 4.3 MMOL/L (3.5-5.1); SODIUM LEVEL 137 MMOL/L (136-145)
== END ==
LOC: M PLALAB 12:06
PROVIDERS: ATTEND Physician Assistant
DX: R00.2 Palpitations (principal)

== ENCOUNTER → 2023-09-04 | Outpatient (CLI) | payer BC | LOC: M CARPUL 08:09 | PROVIDERS: ATTEND Physician Assistant | DX: R00.2 Palpitations (principal) ==

== ENCOUNTER → 2023-12-25 | Outpatient (CLI) | payer BC ==
[2023-12-25 10:58] LABS: BASO # 0.1 10^3/uL (0.0-0.2); BASO % 1.6 % (0.0-1.0); EOS # 0.1 10^3/uL (0.0-0.5); EOS % 1.9 % (0.0-3.0); HEMATOCRIT 39.3 % (36.0-47.0); HEMOGLOBIN 13.3 g/dl (12.0-15.5); LYMPH # 1.5 10^3/uL (1.5-5.0); LYMPH % 41.5 % (24.0-44.0); MEAN CORPUSCULAR HEMOGLOBIN 30.9 pg (27.0-33.0); MEAN CORPUSCULAR HGB CONC 33.8 g/dl (32.0-36.5); MEAN CORPUSCULAR VOLUME 91.4 fl (80.0-96.0); MONO # 0.3 10^3/uL (0.0-0.8); MONO % 8.2 % (2.0-8.0); NEUTROPHILS # 1.7 10^3/uL (1.5-8.5); NEUTROPHILS % 46.5 % (36.0-66.0); PLATELET COUNT, AUTOMATED 159 10^3/uL (150-450); WHITE BLOOD COUNT 3.7 10^3/uL (4.0-10.0)
[2023-12-25 11:02] LABS: ALBUMIN 3.9 G/DL (3.2-5.2); ALKALINE PHOSPHATASE 41 U/L (46-116); ALT/SGPT 23 U/L (7.0-40); AST/SGOT 13 U/L (<34); BILIRUBIN,TOTAL 0.6 MG/DL (0.3-1.2); BLOOD UREA NITROGEN 20 MG/DL (9-23); CARBON DIOXIDE LEVEL 32 MMOL/L (20-31); CHLORIDE LEVEL 106 MMOL/L (98-107); CHOLESTEROL LEVEL 218 MG/DL (<200); CHOLESTEROL RISK RATIO 3.72 (<5); CREATININE FOR GFR 0.68 MG/DL (0.55-1.30); GLOMERULAR FILTRATION RATE > 60.0 (>45); GLUCOSE, FASTING 80 MG/DL (74-106); HDL CHOLESTEROL 58.6 MG/DL (>40); LDL CHOLESTEROL 147.4 MG/DL (<100); NON-HDL-C 159.4 MG/DL; POTASSIUM SERUM 4.2 MMOL/L (3.5-5.1); SODIUM LEVEL 139 MMOL/L (136-145); TOTAL PROTEIN 6.4 G/DL (5.7-8.2); TRIGLYCERIDES LEVEL 60 MG/DL (<150)
[2023-12-25 11:05] LABS: FERRITIN 68.5 NG/ML (7.3-270.7)
== END ==
LOC: M PLALAB 07:37
PROVIDERS: ATTEND Physician Assistant
DX: E78.00 Pure hypercholesterolemia, unspecified (principal)

== ENCOUNTER → 2023-12-27 | Outpatient (CLI) | payer BC ==
[2023-12-28 12:08] LABS: TISSUE TRANSGLUTAMINASE IgA < 1.0 U/mL (<15.0)
[2023-12-29 03:02] LABS: ALMOND IGE FOOD < 0.10 kU/L (<0.10); CASHEW NUT IGE FOOD < 0.10 kU/L (<0.10); CODFISH IGE FOOD < 0.10 kU/L (<0.10); COWS MILK FOOD < 0.10 kU/L (<0.10); EGG WHITE FOOD < 0.1 kU/L (<0.10); HAZELNUT IGE FOOD < 0.10 kU/L (<0.10); PEANUT IGE FOOD < 0.10 kU/L (<0.10); SALMON IGE FOOD < 0.10 kU/L (<0.10); SCALLOP IGE FOOD < 0.10 kU/L (<0.10); SESAME SEED IGE FOOD < 0.10 kU/L (<0.10); SHRIMP IGE FOOD < 0.10 kU/L (<0.10); SOYBEAN IGE FOOD < 0.10 kU/L (<0.10); TUNA IGE FOOD < 0.10 kU/L (<0.10); WALNUT IGE FOOD < 0.10 kU/L (<0.10); WHEAT IGE FOOD < 0.10 kU/L (<0.10)
== END ==
LOC: M PLALAB 09:20
PROVIDERS: ATTEND Physician Assistant
DX: R21 Rash and other nonspecific skin eruption (principal); R19.5 Other fecal abnormalities

== ENCOUNTER → 2023-12-31 | Outpatient (REF) | payer BC | LOC: M SFHCPLAZ 08:46 | PROVIDERS: ATTEND Physician Assistant | DX: K58.2 Mixed irritable bowel syndrome (principal); R14.1 Gas pain ==

== ENCOUNTER → 2024-05-29 | Outpatient (CLI) | payer BC | LOC: M WHC 06:52 | PROVIDERS: ATTEND Obstetrics & Gynecology | DX: Z12.31 Encounter for screening mammogram for malignant neoplasm of breast (principal) ==

== ENCOUNTER → 2025-01-07 | Outpatient (CLI) | payer BC ==
[2025-01-07 13:21] LABS: PLATELET COUNT, AUTOMATED 201 10^3/uL (150-450)
[2025-01-07 13:30] LABS: IRON (FE) 147 UG/DL (50-170)
[2025-01-07 13:31] LABS: ALT/SGPT 17 U/L (7.0-40); AST/SGOT 16 U/L (<34); CALCIUM LEVEL 9.0 MG/DL (8.3-10.6); CARBON DIOXIDE LEVEL 32 MMOL/L (20-31); CHLORIDE LEVEL 103 MMOL/L (98-107); CHOLESTEROL LEVEL 218 MG/DL (<200); CHOLESTEROL RISK RATIO 4.18 (<5); CREATININE FOR GFR 0.60 MG/DL (0.55-1.30); GLOMERULAR FILTRATION RATE > 90.0 (>45); LDL CHOLESTEROL 146.5 MG/DL (<100); MAGNESIUM LEVEL 2.1 MG/DL (1.8-2.4); NON-HDL-C 165.9 MG/DL; PERCENT SATURATION 51.6 % (13.2-45.0); POTASSIUM SERUM 4.6 MMOL/L (3.5-5.1); SODIUM LEVEL 142 MMOL/L (136-145); TRIGLYCERIDES LEVEL 97 MG/DL (<150)
[2025-01-07 13:32] LABS: FREE T4 1.29 NG/DL (0.89-1.76)
[2025-01-07 13:33] LABS: ESTIMATED AVERAGE GLUCOSE 94.0 MG/DL (60-110); VITAMIN B12 LEVEL 480 PG/ML (211-911)
[2025-01-07 13:35] LABS: TOTAL 25(OH) VITAMIN D 33.7 NG/ML (20.0-100.0)
== END ==
LOC: M PLALAB 09:19
PROVIDERS: ATTEND Nurse Practitioner Family
DX: R41.3 Other amnesia (principal); Z13.29 Encounter for screening for other suspected endocrine disorder; Z13.1 Encounter for screening for diabetes mellitus; Z13.220 Encounter for screening for lipoid disorders

== ENCOUNTER 2025-02-03 09:03 | Day surgery (SDC) | payer BC ==
[~2025-02-03] VITALS: Ht 167.6 cm; Wt 53.3 kg
[~2025-02-03 09:03] MED LIST changes: -ACE65ERTAB PO; +ACET-1593 PO
[2025-02-03] MEDS ORDERED: LIDOCAINE 2% 100 MG/5 ML SDV (FOR ANES.) As Ordered ONE (11:37)
[2025-02-03 12:00] VITALS: TEMP 96.9
[2025-02-03 12:15] VITALS: BP 111/57; O2SAT 98
== END 2025-02-03 12:16 | disposition home or self-care (01) ==
LOC: M OPP 09:03
PROVIDERS: ATTEND Internal Medicine Gastroenterology
DX: K64.8 Other hemorrhoids (principal); Q43.8 Other specified congenital malformations of intestine; R19.4 Change in bowel habit; Z80.0 Family history of malignant neoplasm of digestive organs; Z88.5 Allergy status to narcotic agent; Z88.8 Allergy status to other drugs, medicaments and biological substances